=== PATIENT | female | born 1945 | race Caucasian/White ===

== ENCOUNTER 2023-11-13 15:47 | Inpatient (IN) | payer MEDICARE, SELFPAY ==
[2023-11-13 11:32] VITALS: BP 140/74
[2023-11-13] MEDS: ADENOCARD 6 MG IV (12:12)
[2023-11-13] MEDS: NSS 500 IV (12:12)
--- NOTE | 2023-11-13 12:18 | ED.GENMED ---
History of Present Illness
General
Chief Complaint: Cold/Flu/URI Symptoms
Source: patient, records and spouse
Exam Limitations: none
Time Seen by Provider: 11/13/23 11:51
Nursing documentation reviewed up to this point in time: agreed with
Travel History
Have you had any contact with someone who has COVID-19?: No
Do you have any symptoms of coronavirus? Fever > 100 degrees, chills, cough, shortness of breath, sore throat, loss of taste or smell, muscle aches, or headache?: Yes
Symptoms:: cough
History of Present Illness
History of Present Illness:
78-year-old female with a past medical history of hypertension, asthma, atrial fibrillation on Eliquis who presents to the emergency room for evaluation of cough, congestion, fevers over the past few days. Patient reports she has been sick for 6
days with hacking productive cough. She says that initially she thought her symptoms could be related to asthma exacerbation as she has had issues with this in the past typically triggered by allergies/pollen. She says that over the past few days
she started to have fever. She says that her eyes are watery and somewhat crusty. She says that she was worried she could be developing pneumonia and came to the emergency room to be assessed. In triage she was noted to be quite tachycardic to
the 150s�she denies any chest pain or palpitations. She denies any shortness of breath. She denies feeling dizzy. She has a known history of A-fib and is on Eliquis and reports compliance.
Past History
Past History
ED Past Medical History: Asthma, HTN, Other (Venous insufficiency) and Other (osteoporosis)
ED Past Surgical History: None
Social History
Tobacco: Non-smoker
Alcohol: None
Drug: None
Personal:
Living: with family
Employment: Employed ([employer])
Review of Systems
Review of Systems
All Other Systems: ROS reviewed and negative except as documented in HPI and ROS
Constitutional: Reports fever, fatigue and chills
EENT: Reports runny nose; Denies sore throat
Respiratory: Reports cough; Denies trouble breathing
Cardiac: Denies chest pain, palpitations or syncope
ABD/GI: Denies abdominal pain, nausea or vomiting
: Denies flank pain
Musculoskeletal: Denies edema, neck pain or back pain
Neurological: Denies dizzy or headache
Phy Exam
Physical Exam
Physical Exam:
General: Awake, alert, oriented x3; no acute distress
Head: Normocephalic, atraumatic
Eyes: Patient has some slight conjunctival injection; pupils are equal round and reactive to light bilaterally
Throat: Airway intact, handling secretions
Neck: Trachea midline, no JVD
Lungs: Scattered wheezing with frequent hacking cough; pulse ox acceptable on room air, respiratory rate normal, work of breathing normal, speaking full sentences
Heart: Tachycardia with ostensibly regular rhythm, no murmurs, gallops, or rubs
Abd: Soft, non distended, nontender
Neuro: Cranial nerves grossly intact, speech fluid
Skin: no rash
Extremities: Patient has trace edema in the left lower extremity which is asymmetric compared to the right�she says it is a chronic issue related to lymphedema and is not an acute change; she has warm well-perfused extremities with good distal pulses
Scores
Heart Failure Risk
Heart Failure Risk Score: Not Applicable
Heart Score for Chest Pain Patients
STEMI patient?: Not applicable
Withdrawal Assessment of Alcohol
Withdrawal Assessment Completed?: Not applicable
Course
Orders/Labs/Results
Orders:
Orders
11/13/23
Electrocardiogram (*1) Stat
Reason for Study: Chest Pain
Comment: NO ORDER RECIEVED
Electrocardiogram (*1) Urgent
Reason for Study: Chest Pain
Comment: NO ORDER RECIEVED
11/13/23 11:43
EKG [Electrocardiogram (*1)] Urgent
Reason for Study: Tachycardia
EKG- Treatment ONCE
11/13/23 12:00
0.9% Sodium Chloride 500 ml [Nss] 500 ml IV BOLUS
CR Chest Portable - 1 View Urgent
Comment:
Reason For Exam: cough, sob
Reason Study Needs to be Portable: Unable to Transport
11/13/23 12:07
Adenosine [Adenocard] 18 mg .ROUTE .STK-MED ONE
11/13/23 12:09
Adenosine [Adenocard] 18 mg .ROUTE .STK-MED ONE
11/13/23 12:11
Adenosine [Adenocard] 6 mg IV NOW STA
11/13/23 12:16
COVID-19 Antigen Urgent
Source: Nasal Swab
Complete Blood Count/With Diff Urgent
Comprehensive Metabolic Panel Urgent
TSH Urgent
Comment: ADD ON
Influenza A+B Rapid Molecular Urgent
HEATHER Source: Nasal Swab
Specimen Description:
11/13/23 12:42
Diltiazem HCl [Cardizem] 10 mg IV NOW STA
11/13/23 13:46
Add On- LAB Urgent
Tests Added?: tsh
11/13/23 14:23
Acetaminophen [Tylenol] 1,000 mg PO NOW STA
CefTRIAXone [Rocephin] 1,000 mg IV NOW STA
Doxycycline Hyclate [Vibramycin] 100 mg 0.9% Sodium Chloride 250 ml [Nss] 250 ml IV NOW
Abnormal Lab Results
11/13/23
12:16
RBC 4.18 L 10^6/uL
(4.20-5.40)
Hct 36.0 L %
(37.0-47.0)
MPV 11.5 H fL
(7.4-10.4)
Absolute Lymphs (auto) 0.9 L 10^3/uL
(1.2-3.4)
Absolute Monos (auto) 0.9 H 10^3/uL
(0.1-0.6)
Neutrophils % 77.6 H %
(42.2-75.2)
Lymphocytes % 10.8 L %
(20.5-51.1)
Monocytes % 10.8 H %
(1.7-9.3)
Sodium 134 L mmol/L
(135-145)
Glucose 184 H mg/dl
(70-99)
11/13/23 12:16
11/13/23 12:16
Vital Signs
Temp: 37.8 C
Initial and Last Documented VS:
Initial Vital Signs
Temp Pulse Resp BP Pulse Ox
37.2 C 168 20 140/74 96
11/13/23 11:32 11/13/23 11:32 11/13/23 11:32 11/13/23 11:32 11/13/23 11:32
Last Documented Vital Signs
Temp Pulse Resp BP Pulse Ox
37.2 C 83 21 117/66 95
11/13/23 11:32 11/13/23 13:00 11/13/23 13:00 11/13/23 13:00 11/13/23 13:00
MDM/Problems Addressed
Differential Diagnosis Includes:
Bronchitis, asthma exacerbation, pneumonia, viral URI, CHF
MDM/Problems Addressed:
78-year-old female with history as above presents for evaluation of cough, congestion, watery eyes and fevers over the past 6 days. She has been using her albuterol at home quite frequently. She arrives to us quite tachycardic with heart rate in
the 150s but she is not symptomatic from this. She has a known history of A-fib and is compliant with her Eliquis. Vital signs as documented. Exam as above. Patient was brought back to her room and IV was placed labs sent off including a CBC and
a CMP, thyroid studies. Will swab for COVID and flu. She was placed on continuous cardiac monitoring and given a dose of adenosine with concern for possible SVT based on her elevated heart rate�with slowing of the rhythm appears more consistent
with atrial flutter with 2:1 conduction. Plan IV fluids. Check a chest x-ray rule out pneumonia. With minimal wheezing and marked tachycardia hold on albuterol for now. Will start with some diltiazem for rate control. Patient could potentially
be candidate for ED cardioversion; will discuss with cardiology pending initial assessment.
Fortunately the patient converted to a normal sinus rhythm without intervention here. Repeat EKG confirms sinus rhythm with heart rate in the 90s. Continue to monitor pending workup.
Labs reviewed: CBC unremarkable, CMP no clinically significant abnormalities. Chest x-ray shows left lower lobe pneumonia. Clinical reassessment patient with increasing temperature to 100.1 �F. Pulse ox low normal 91% on room air. Will plan to
admit for inpatient treatment of her pneumonia, monitor on telemetry regarding her episode of rapid a flutter. Discussed with hospitalist for admission.
Chronic conditions affecting care:
Atrial fibrillation, asthma
Acute Exacerbation and/or Progression of Chronic Illness:
Acute exacerbation of atrial fibrillation
*Radiology
Radiology exam reviewed: preliminary read by ED provider and radiology read reviewed
*Pulse Oximetry
Patient hypoxic: no
*EKG
Interpreted by ED Provider?: Yes
Heart Rate: 146
Rate: tachycardiac
Rhythm: atrial flutter
Saxon: normal axis
Interval: normal interval
QRS Pattern: normal QRS
Ischemia: no ischemia
*Critical Care Note
Total Time (30-74mins, 75-104mins- exclusive of procedures): 37
comment:
Critical care statement: A total of 37 minutes of critical care time was provided for this patient. This includes management of unstable vital signs, evaluation of the patient at bedside, frequent reassessment, discussion with
consultants/hospitalist, and review of pertinent medical records. This time was separate from time utilized to perform any aforementioned documented procedures
Data Reviewed
Review of Other/Old Records Reveals: Labs and Records
Source: patient, records and spouse
Patient Management
Discussion with other providers: Hospitalist (Discussed with hospitalist)
Escalation/DeEscalation of care consider admission/obs:
Admission indicated
ED Attending Note
-
Portions of this chart may have been created with voice recognition software.� Occasional wrong word or��sound alike� substitutions may have occurred due to the inherent limitations of voice recognition software.
Discharge Plan
Departure
Patient Disposition: Admit
Date of Disposition: 11/13/23
Time of Disposition: 14:22
Admit to doctor: Mary
Presentation/result/management discussed w/ accepting MD/DO: Hospitalist
Discharge Problem:
Pneumonia, Paroxysmal atrial flutter
Prescriptions:
No Action
trazodone 50 MG tablet
50 mg PO HS
Amlodipine-Valsartan 5-160 mg
1 tab PO DAILY
metoprolol succinate 50 MG tablet extended release 24 hr
50 mg PO DAILY
albuterol sulfate 1 PUFF HFA aerosol inhaler
2 puff inhalation PRN PRN (Reason: asthma)
fluticasone propionate [Flovent HFA] 1 PUFF HFA aerosol inhaler
2 puff inhalation PRN PRN (Reason: asthma)
cholecalciferol (vitamin D3) [Vitamin D3] 1,000 UNIT capsule
1,000 unit PO DAILY
calcium citrate-vitamin D3 1 EACH tablet
1 tab PO BID
apixaban [Eliquis] 5 MG tablet
5 mg PO BID
Benefiber
2 tsp PO DAILY
Estradiol Vaginal
topical WEEKLY
Referrals:
Gm Cam MD [Family Provider] -
Interventions
Interventions:
*Risk Screen - Suicide Last Done: 11/13/23 12:42
*General Assessment Last Done: 11/13/23 12:41
*ED COVID-19 Vaccine History Last Done: 11/13/23 12:41
Discharge Date and Time
Print Language: [place]
[2023-11-13 12:21] VITALS: BMI 20.4
[2023-11-13 12:33] LABS: % Basophils 0.4 % (0-2); % Eosinophils 0.3 % (0-6); % Immature Granulocytes 0.1 % (0-0.5); % Lymphocytes 10.8 % (20.5-51.1); % Monocytes 10.8 % (1.7-9.3); % Neutrophils 77.6 % (42.2-75.2); Absolute Lymphocytes 0.9 10^3/uL (1.2-3.4); Absolute Monocytes 0.9 10^3/uL (0.1-0.6); Absolute Neutrophils 6.1 10^3/uL (1.4-6.5); Hemoglobin 12.5 g/dL (12.0-16.0); Mean Corp Hgb Conc. 34.7 g/dL (33.0-37.0); Mean Corpuscular Hgb 29.9 pg (27.0-31.0); Mean Corpuscular Volume 86.1 fL (81.0-99.0); Mean Platelet Volume 11.5 fL (7.4-10.4); Nucleated Red Blood Cells % 0 %; Platelet Count 173 10^3/uL (130-400); Red Blood Cell Count 4.18 10^6/uL (4.20-5.40); Red Cell Dist. Width 12.7 % (11.5-14.5); White Blood Cell Count 7.9 10^3/uL (4.8-10.8)
[2023-11-13 12:51] LABS: ALT (SGPT) 21 U/L (0-35); AST (SGOT) 31 U/L (14-36); Albumin 3.5 g/dl (3.5-5.0); Alkaline Phosphatase 52 U/L (38-126); Blood Urea Nitrogen 13 mg/dl (7-17); Calcium 8.7 mg/dl (8.4-10.2); Carbon Dioxide 27 mmol/L (22-30); Chloride 105 mmol/L (98-107); Estimated Creatinine Clearance 57 ml/min; Glucose 184 mg/dl (70-99); Potassium 4.1 mmol/L (3.5-5.1); Sodium 134 mmol/L (135-145); Total Bilirubin 0.8 mg/dl (0.2-1.3); Total Protein 6.4 g/dl (6.3-8.2); eGFR > 60.00
[2023-11-13 13:00] VITALS: BP 117/66
[2023-11-13 13:20] LABS: COVID-19 Antigen Negative (Negative)
[2023-11-13 14:00] VITALS: BP 127/72
[2023-11-13] MEDS: TYLENOL 1000 MG PO (14:38)
[2023-11-13] MEDS: ROCEPHIN 1000 MG IV (14:38)
[2023-11-13 15:02] LABS: TSH 0.42 uIU/ml (0.47-4.68)
--- NOTE | 2023-11-13 15:16 | HPS.HSE ---
Family Physician
-
Family Physician: Gm Cam
Chief Complaint
-
Cough, fever, shortness of breath
History of Present Illness
Patient started to feel bad days since and Tuesday this week. It got progressively worse.
The cough is got progressively worse. Initially no fever but the last 2 days she has been having fever and chills at home. Not phlegm. heard gurgling cough. Then she started to become short of breath.
She had some chest pain especially with coughing. The chest pains were in the central lower ,on and off. Currently none. She did not feel any palpitations. No nausea or vomiting. She was having metallic taste in the mouth.
She has a prior history of seasonal allergies but was not bothered much in the recent years. She also has a history of asthma, again not bothered much recently. This week she was having runny nose, sneezing and eye crusting. She saw PCP who
prescribed antihistamine nasal spray and cough medicine. No antibiotics.
Here in the ER she was noted to be in rapid a flutter ,had adenosine and Cardizem and now converted to sinus rhythm. She is on anticoagulation.
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 She was visiting her twice a week. Otherwise no sick contacts. No pets at home. Last travel was October to [place]. No prior history of pneumonias
Medical History
Past Medical History
Past Medical History: Reports Arrhythmia (afib), Asthma and HTN
Past Surgical History: Reports None
Social History
Tobacco: Non-smoker
Alcohol: None
Drug: None
Personal:
Living: With Family
Family History
Family History: Not pertinent
Allergies / Home Medications
Allergies reflects when Allergies were last updated in [email or web address].
Home Medications with original date entered in [email or web address]
Allergy/Medication List:
Allergies
Allergy/AdvReac Type Severity Reaction Status Date / Time
Sulfa (Sulfonamide Allergy Unknown Verified 11/13/23 11:35
Antibiotics)
Home Medications
trazodone 50 mg tablet 50 mg PO HS 02/14/11
albuterol sulfate 90 mcg/actuation aerosol inhaler 2 puff inhalation R Q6HPRN PRN sob/wheezing 06/27/19
amlodipine 5 mg-valsartan 160 mg tablet 1 tab PO DAILY 06/27/19
apixaban 5 mg tablet (Eliquis) 5 mg PO BID 06/27/19
metoprolol succinate 50 mg tablet,extended release 24 hr 50 mg PO DAILY 06/27/19
azelastine 137 mcg (0.1 %) nasal spray aerosol 1 spray intranasal BID 11/13/23
benzonatate 100 mg capsule 100 mg PO TID PRN cough 11/13/23
denosumab 60 mg/mL subcutaneous syringe (Prolia) 60 mg SC [id number] 11/13/23
fluticasone propionate 110 mcg/actuation HFA aerosol inhaler 2 puff inhalation R BID 11/13/23
oxybutynin chloride 5 mg tablet,extended release 24 hr 5 mg PO QPM 11/13/23
Review of Systems
-
A 12 point ROS was completed and negative except as noted: Yes
Physical Exam
Vital Signs
Vital Signs
Temp Pulse Resp BP Pulse Ox
100.1 F 83 21 117/66 95
11/13/23 14:27 11/13/23 13:00 11/13/23 13:00 11/13/23 13:00 11/13/23 13:00
Physical Exam
General: No Apparent Distress
HEENT: Moist mucous membranes
Respiratory: Crackles (left base) and Non Labored Respirations; No Wheezes or Accessory Resp Muscle Use
Cardiac: S1/S2 and Regular Rhythm (sr on monitor now)
GI: Soft
Musculoskeletal: Edema, Left Lower Extremity (chronic swelling from venous insufficiency and no large today)
Neuro: AO x 3 and No Motor Deficits; No Slurred Speech or Facial Droop
Psych: Calm; No Confused
Laboratory Results
-
11/13/23 12:16
11/13/23 12:16
Laboratory Results
Total Bilirubin 0.8 mg/dl (0.2-1.3) 11/13/23 12:16
AST 31 U/L (14-36) 11/13/23 12:16
ALT 21 U/L (0-35) 11/13/23 12:16
Alkaline Phosphatase 52 U/L (38-126) 11/13/23 12:16
Data Reviewed
-
Diagnostic Radiology: Report Reviewed by me (xr chest)
Lab Data: Labs Reviewed by me
Impression/Plan
-
Left lower lobe pneumonia-suspected infection. Rule out bacterial. COVID-19 and influenza negative. Panculture including sputum, blood cultures, and Streptococcus and urine antigen. Check procalcitonin. Started empirical antibiotics for
community-acquired pneumonia.
Hypoxic respiratory insufficiency-start on oxygen. No acute respiratory distress or suggestions of respiratory failure currently.
Seasonal allergies-acting up this week-continue with her antihistamine nasal spray.
Asthma-currently no active bronchospasm. Use as needed nebulizers. Hold on steroids.
Hypertension-continue the home medication
Atrial fibrillation-? Paroxysmal. Reverted back to sinus rhythm in the ER. Continue to follow on telemetry. Continue with anticoagulation.
Full code
[2023-11-13] MEDS: VIBRAMYCIN 260 MG IV (15:17)
[2023-11-13 17:45] VITALS: BP 109/61; BMI 20.9
[2023-11-13 19:32] VITALS: BP 104/53
[2023-11-13] MEDS: MUCINEX 600 MG PO (19:57)
[2023-11-13] MEDS: DITROPAN 2.5 MG PO (19:58)
[2023-11-13] MEDS: ELIQUIS 5 MG PO (19:58)
[2023-11-13] MEDS: DESYREL 50 MG PO (21:57)
[2023-11-13 23:17] VITALS: BP 105/57
[2023-11-14] VITALS (7 sets, daily range): BP systolic 94–120; BP diastolic 55–63; PULSE 68; O2SAT 95; BMI 20.7
[2023-11-14] MEDS: TYLENOL 650 MG PO (04:02)
[2023-11-14] MEDS: TESSALON PERLES 100 MG PO ×2 (04:03→20:38)
[2023-11-14] MEDS: ELIQUIS 5 MG PO ×2 (08:32→20:21)
[2023-11-14] MEDS: TOPROL XL 50 MG PO (08:33)
[2023-11-14] MEDS: DITROPAN 2.5 MG PO ×2 (08:33→20:22)
[2023-11-14] MEDS: DIOVAN 160 MG PO (08:33)
[2023-11-14] MEDS: VIBRAMYCIN 100 MG PO ×2 (08:35→20:22)
[2023-11-14] MEDS: NORVASC 5 MG PO (08:35)
[2023-11-14] MEDS: MUCINEX 600 MG PO ×2 (08:35→20:22)
--- NOTE | 2023-11-14 09:17 | W.PN.HOSP.TC ---
Addendum entered and electronically signed by Jackie Holman MD 11/14/23 15:08:
pt seen and examined independently--agree with plan set forth by Dr. Arreola
GENERAL: well developed, well nourished, female in no apparent distress
HEENT: NC/AT--no O2 requirements
HEART: regular rate and rhythm, +S1, +S2
LUNGS : rhonchi RUL
ABDOM: soft, nontender, nondistended, + bowel sounds
EXT: no cyanosis, clubbing, or edema
NEUROLOGIC: grossly intact
Left lower lobe pneumonia--Suspected viral pneumonia but cannot r/o CAP--cont rocephin/doxy--cultures pending--No fever in the past 24 hours--Possible discharge tomorrow
Acute Hypoxic respiratory insufficiency--Weaned off oxygen, patient on room air
Paroxysmal atrial fibrillation--Converted to sinus rhythm in the ED--Continue Eliquis--EKG showed SVT--now resolved
Seasonal allergies--Continue azelastine
code status--full code
DVT prophylaxis
Anticipated Discharge: 24 - 48 hours
Original Note:
Today's Communication/Plan
-
Possible discharge tomorrow
Assessment / Plan
Assessment / Plan
Impression
Left lower lobe pneumonia
Hypoxic respiratory insufficiency
Paroxysmal atrial fibrillation
Seasonal allergies
Assessment and plan
Left lower lobe pneumonia
Suspected viral pneumonia
Day 2 IV ceftriaxone p.o. doxycycline for CAP
Pancultures pending
No fever in the past 24 hours
Monitor WBC and temperature curve
Possible discharge tomorrow
Hypoxic respiratory insufficiency
Weaned off oxygen, patient on room air
Not in respiratory distress
Paroxysmal atrial fibrillation
On telemetry
Converted to sinus rhythm in the ED
No recent events
Continue Eliquis
EKG showed SVT
Seasonal allergies
Continue azelastine
DVT prophylaxis
Anticipated Discharge: 24 - 48 hours
Subjective/Interval History
-
Date of Service: November 14, 2023
Patient complains of bilateral lower eyelid crusting, mild shortness of breath on exertion. She denies chest pain orthopnea edema.
Objective Data
-
Vital Signs:
Vital Signs
Temp Pulse Resp BP Pulse Ox
98.4 F 83 18 111/59 92
11/14/23 08:21 11/14/23 08:35 11/14/23 08:21 11/14/23 08:35 11/14/23 08:30
I&O
11/13/23 11/14/23 11/15/23
06:59 06:59 06:59
Output Total 50 / 50
Balance -50 / -50
Review of Systems
-
History Source: Patient
All other systems: Reviewed and negative (Except mentioned)
EENT: Reports Runny Nose and Other (Lower eyelid crusts)
Respiratory: Reports Other (Dyspnea on exertion)
Physical Exam
-
General: Comfortable and Conversant
HEENT: Normocephalic and Atraumatic
Respiratory: Rhonchi (Bilateral upper lobe)
Cardiac: Regular Rhythm and S1/S2
GI: Soft, Nontender and Nondistended
Musculoskeletal: No Edema
Data Reviewed
-
Medical Tests (Nuc Med, Echo etc): Report Reviewed by me and Discussed with Physician
--- NOTE | 2023-11-14 10:23 | CM ---
Holley was admitted to with shortness of breath and afib. She lives at home with her in a 2 story condo. They share in the housekeeping and meal prep. 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 She has 2
daughters who are supportive.
Holley anticipates returning home at discharge; no DME in the home. Spouse will assist as needed. No needs anticipated at this time.
PCP is Dr. Marcial [phone]
Pharmacy is [facility] on [facility] in [place] .
--- NOTE | 2023-11-14 11:44 | PTOTSP ---
Pt is able to get OOB and ambulate in hallway and on stairs independently without need for any assistive device. PT will sign off.
[2023-11-14] MEDS: FLUSH (NSS) 1 FLUSH IV (14:06)
[2023-11-14] MEDS: ROCEPHIN 1000 MG IV (14:06)
[2023-11-14] MEDS: STERILE WATER FOR INJECTION 10 ML IV (14:06)
--- NOTE | 2023-11-14 16:43 | PTCARENOTE ---
Pt AAO x3, GARCIA well, ambulatory in room/to BR; jesús well, no c/o weakness/dizziness. VSS. Telemetry:NSR. On room air- pulse ox 95%, no c/o SOB. Jesús reg diet. Voiding in BR without difficulty. resting in bed at present, no c/o. Will continue to
monitor.
[2023-11-14] MEDS: DESYREL 50 MG PO (20:25)
[2023-11-15] MEDS: ProAIR HFA INHALER 2 PUFF INH (00:55)
[2023-11-15 03:16] VITALS: BP 110/69
[2023-11-15 04:37] LABS: % Basophils 0.7 % (0-2); % Immature Granulocytes 0.4 % (0-0.5); % Lymphocytes 21.3 % (20.5-51.1); % Monocytes 10.3 % (1.7-9.3); % Neutrophils 64.3 % (42.2-75.2); Absolute Basophils 0.1 10^3/uL (0-0.2); Absolute Eosinophils 0.2 10^3/uL (0-0.7); Absolute Lymphocytes 1.6 10^3/uL (1.2-3.4); Absolute Monocytes 0.8 10^3/uL (0.1-0.6); Absolute Neutrophils 4.9 10^3/uL (1.4-6.5); Hematocrit 31.4 % (37.0-47.0); Hemoglobin 10.6 g/dL (12.0-16.0); Mean Corp Hgb Conc. 33.8 g/dL (33.0-37.0); Nucleated Red Blood Cells % 0 %; Platelet Count 178 10^3/uL (130-400); Red Blood Cell Count 3.65 10^6/uL (4.20-5.40); Red Cell Dist. Width 12.7 % (11.5-14.5); White Blood Cell Count 7.6 10^3/uL (4.8-10.8)
[2023-11-15 05:10] LABS: Blood Urea Nitrogen 12 mg/dl (7-17); Calcium 8.6 mg/dl (8.4-10.2); Carbon Dioxide 24 mmol/L (22-30); Chloride 108 mmol/L (98-107); Estimated Creatinine Clearance 65 ml/min; Glucose 101 mg/dl (70-99); Potassium 3.8 mmol/L (3.5-5.1); Sodium 137 mmol/L (135-145); eGFR > 60.00
[2023-11-15 05:20] LABS: Procalcitonin 0.05 ng/ml (0.0-0.25)
[2023-11-15 08:03] VITALS: BP 114/61
--- NOTE | 2023-11-15 08:15 | W.PN.HOSP.TC ---
Addendum entered and electronically signed by Jackie Holman MD 11/15/23 13:23:
pt seen and examined independently--agree with plan set forth by Dr. Arreola
GENERAL: well developed, well nourished, female in no apparent distress
HEENT: NC/AT--no O2 requirements
HEART: regular rate and rhythm, +S1, +S2
LUNGS : CTA--raspy breath sounds--nothing significant
ABDOM: soft, nontender, nondistended, + bowel sounds
EXT: no cyanosis, clubbing, or edema
NEUROLOGIC: grossly intact
Left lower lobe pneumonia--Suspected viral pneumonia but cannot r/o CAP--cont rocephin/doxy, change to augmentin at d/c--cultures negative--No fever in the past 24 hours-- discharge
Acute Hypoxic respiratory insufficiency--Weaned off oxygen, patient on room air
Paroxysmal atrial fibrillation--Converted to sinus rhythm in the ED--Continue Eliquis--EKG showed SVT--now resolved
Seasonal allergies--Continue azelastine
code status--full code
DVT prophylaxis
Original Note:
Today's Communication/Plan
-
discharging today on augmentin
Assessment / Plan
Assessment / Plan
Impression
Left lower lobe pneumonia
Hypoxic respiratory insufficiency
Paroxysmal atrial fibrillation
Seasonal allergies
Assessment and plan
Left lower lobe pneumonia
Suspected viral pneumonia
Switch to augmentin 500 mg twice daily for 7 days
Negative for Legionella and strep pneumonia antigen
Blood cultures negative preliminary
No fever in the past 24 hours
Discharge today
Hypoxic respiratory insufficiency
Weaned off oxygen, patient on room air
Not in respiratory distress
Paroxysmal atrial fibrillation
Converted to sinus rhythm in the ED
EKG showed SVT-no resolved
No recent events
Continue Eliquis at home
Seasonal allergies
Continue azelastine
Claritin OTC
DVT prophylaxis
Anticipated Discharge: Today
Subjective/Interval History
-
Date of Service: November 15, 2023
Denies CP, SOB
Objective Data
-
Labs:
Laboratory Results
11/15/23
04:26
WBC 7.6
Hgb 10.6 L
Hct 31.4 L
Plt Count 178
Sodium 137
Potassium 3.8
Chloride 108 H
Carbon Dioxide 24
BUN 12
Creatinine 0.6
Glucose 101 H
Calcium 8.6
Vital Signs:
Vital Signs
Temp Pulse Resp BP Pulse Ox
98.3 F 81 18 114/61 97
11/15/23 08:03 11/15/23 08:03 11/15/23 08:03 11/15/23 08:03 11/15/23 08:03
I&O
11/14/23 11/15/23 11/16/23
06:59 06:59 06:59
Intake Total 1100 / 1100
Output Total 50 / 50
Balance -50 / -50 1100 / 1100
Review of Systems
-
All other systems: Reviewed and negative
Physical Exam
-
General: Comfortable and Conversant
HEENT: Normocephalic and Atraumatic
Respiratory: Clear to Auscultation
Cardiac: Regular Rhythm and S1/S2
Musculoskeletal: No Edema
Neuro: AO x 3
Data Reviewed
-
Medical Tests (Nuc Med, Echo etc): Report Reviewed by me and Discussed with Physician
[2023-11-15] MEDS: VIBRAMYCIN 100 MG PO (08:20)
[2023-11-15] MEDS: MUCINEX 600 MG PO (08:20)
[2023-11-15] MEDS: ELIQUIS 5 MG PO (08:20)
[2023-11-15] MEDS: DITROPAN 2.5 MG PO (08:20)
[2023-11-15] MEDS: DIOVAN 160 MG PO (08:22)
[2023-11-15] MEDS: NORVASC 5 MG PO (08:22)
[2023-11-15] MEDS: TOPROL XL 50 MG PO (08:23)
--- NOTE | 2023-11-15 11:07 | CM ---
Patient seen at bedside. Patient states that she anticipates discharge home today and patient to transport home. IMM completed yesterday and patient indicated that she had no needs at this time. CM will continue to follow for discharge
planning needs.
Plan; home with no needs anticipated
[2023-11-15 11:53] VITALS: BP 110/58
[2023-11-15] MEDS: ROCEPHIN 1000 MG IV (13:47)
[2023-11-15] MEDS: STERILE WATER FOR INJECTION 10 ML IV (13:47)
[2023-11-15] MEDS: FLUSH (NSS) 1 FLUSH IV (13:47)
--- NOTE | 2023-11-15 15:42 | W.DCSUMMARY ---
Addendum entered and electronically signed by Jackie Holman MD 11/15/23 16:03:
Fully read and agree with d/c summary as set forth by Dr. Arreola.
Original Note:
Discharge Summary
Discharge Data
Date of Admission: 11/13/23
Date of Discharge: 11/15/23
-
Pending Results: No
Hospital Course
78-year-old female presented to the ED for evaluation of cough, congestion, Fevers over the past few days. Patient has a history of asthma, hypertension, osteoporosis, venous insufficiency. In the ED her vital signs showed hypertension,
tachycardic, SpO2 of 96 on room air. Patient was in acute acute respiratory distress. In the ED patient heart rate was above 150 and patient had an episode of atrial flutter. EKG showed SVT. Patient was placed on continuous cardiac monitoring
and given a dose of adenosine for concerns of SVT and Cardizem drip. She was converted to sinus rhythm. Soon patient patient's temperature increased to 100.1. Chest x-ray showed lower lobe pneumonia and she was started on IV ceftriaxone. Patient
has a history of paroxysmal atrial fibrillation and uses Eliquis at home. Cultures were negative for infection. We continued IV ceftriaxone and added doxycycline 100 mg twice daily PO. Day of discharge patient was hemodynamically stable, no
evidence of increased heart rate. Patient does report of seasonal allergies for which she was taking azelastine nasal spray. Patient was discharged home on oral antibiotics-Augmentin 500 mg twice daily for 7 days. SVT and atrial flutter resolved.
Vital signs on the day of discharge
Blood pressure 110/58 pulse 75 RR 18 Temp 97.3 O2 sat 94 on room air
Left lower lobe pneumonia
Oral Augmentin primary milligram twice daily for 7 days
Hypoxic respiratory insufficiency
Weaned off oxygen, not requiring oxygen at home
Paroxysmal atrial fibrillation
Continue Eliquis
Seasonal allergies
Continue azelastine spray, OTC Claritin
Discharge Plan
-
Patient Disposition: Home (Routine Discharge)
Discharge Diagnosis/Procedures: Left lower lobe pneumonia
Hypoxic respiratory insufficiency
Paroxysmal atrial fibrillation
Seasonal allergies
Diet: Regular
Activity: No restrictions
Driving Restrictions: As prior to admission
Blood Work: CBC in 1 week
Referrals:
Gm Cam MD [Family Provider] - in less than 1 week
Additional Discharge Medication Instructions: Amoxicillin clavulanate 500-125, 1 tablet to be taken 2 times a day with food for 7 days
Prescriptions:
New
amoxicillin-pot clavulanate 500-125 mg tablet
1 tab PO BID 7 Days Qty: 14 0RF
Continued
trazodone 50 MG tablet
50 mg PO HS
metoprolol succinate 50 MG tablet extended release 24 hr
50 mg PO DAILY
albuterol sulfate 1 PUFF HFA aerosol inhaler
2 puff inhalation R Q6HPRN PRN (Reason: sob/wheezing)
amlodipine-valsartan 5-160 mg Tablet
1 tab PO DAILY
Eliquis 5 MG tablet
5 mg PO BID
benzonatate 100 mg capsule
100 mg PO TID PRN (Reason: cough)
oxybutynin chloride 5 mg tablet extended release 24hr
5 mg PO QPM
azelastine 137 mcg (0.1 %) aerosol,spray
1 spray INTRANASAL BID
fluticasone propionate 110 mcg/actuation HFA aerosol inhaler
2 puff INHALATION R BID
Prolia 60 mg/mL Syringe
60 mg SC [id number]
Discharge Orders:
Discharge Patient (As Directed); Ordered 11/15/23
Ordered By: Jeffery Arreola
Discharge Date and Time
Discharge Date/Time: 11/15/23 14:37
Print Language: GERMAN
== END 2023-11-15 14:37 | disposition home or self-care (01) | DRG 194 ==
LOC: 4 EAST ACU 15:47
PROVIDERS: Student in an Organized Health Care Education/Training Program; ADMITTING PHYSICIAN Internal Medicine; ATTENDING PHYSICIAN Internal Medicine; EMERGENCY PHYSICIAN Emergency Medicine; FAMILY PHYSICIAN Internal Medicine
DX: J18.9 Pneumonia, unspecified organism (principal); I47.10 Supraventricular tachycardia, unspecified; I48.92 Unspecified atrial flutter; Z79.01 Long term (current) use of anticoagulants; R09.02 Hypoxemia; R06.89 Other abnormalities of breathing; I48.0 Paroxysmal atrial fibrillation; Z11.52 Encounter for screening for COVID-19
CPT/HCPCS: 71045; 80048; 80053; 84145; 84443; 85025; 87040; 87449; 87502; 87811; 87899; 93005; 94640; 96361; 96374; 96375; 97161; 97530; 99291; J0153

== ENCOUNTER → 2024-01-09 10:18 | Outpatient (REF) | payer MEDICARE, SELFPAY | LOC: RAD 10:18 | PROVIDERS: ATTENDING PHYSICIAN Student in an Organized Health Care Education/Training Program | DX: Z87.01 Personal history of pneumonia (recurrent) (principal); R91.1 Solitary pulmonary nodule; Z87.09 Personal history of other diseases of the respiratory system | CPT/HCPCS: 71250 ==

== ENCOUNTER → 2024-01-24 14:28 | Outpatient (REF) | payer MEDICARE, SELFPAY | LOC: RCS 14:28 | PROVIDERS: ATTENDING PHYSICIAN Nurse Practitioner; FAMILY PHYSICIAN Student in an Organized Health Care Education/Training Program; REFERRING PHYSICIAN Internal Medicine Critical Care Medicine | DX: I48.0 Paroxysmal atrial fibrillation (principal); I10 Essential (primary) hypertension; I34.0 Nonrheumatic mitral (valve) insufficiency | CPT/HCPCS: 93306 ==

== ENCOUNTER → 2024-01-25 14:25 | Outpatient (REF) | payer MEDICARE, SELFPAY | LOC: WDC 14:25 | PROVIDERS: ATTENDING PHYSICIAN Obstetrics & Gynecology; FAMILY PHYSICIAN Student in an Organized Health Care Education/Training Program | DX: Z12.31 Encounter for screening mammogram for malignant neoplasm of breast (principal) | CPT/HCPCS: 77063; 77067 ==

== ENCOUNTER 2024-02-06 06:42 | Day surgery (SDC) | payer MEDICARE, SELFPAY ==
[2024-01-30 09:18] LABS: INR 1.02; PT 13.3 Sec (11.4-14.6)
[2024-01-30 14:15] VITALS: BMI 20.4
[2024-02-06] VITALS (8 sets, daily range): BP systolic 105–136; BP diastolic 59–75; BMI 20.2
== END 2024-02-06 17:05 | disposition home or self-care (01) ==
LOC: GI 06:42
PROVIDERS: ATTENDING PHYSICIAN Internal Medicine Critical Care Medicine; FAMILY PHYSICIAN Student in an Organized Health Care Education/Training Program
DX: R91.1 Solitary pulmonary nodule (principal); D14.32 Benign neoplasm of left bronchus and lung; J98.4 Other disorders of lung; J18.9 Pneumonia, unspecified organism
CPT/HCPCS: 31629; 31623; 31624; 31627; 31654; 88172; 88173; 88305; 71045; 76000; 85610; 85730; 87015; 87070; 87102; 87116; 87205; 88112; 88333; 88334; 94640; C1887

== ENCOUNTER → 2024-03-20 10:40 | Outpatient (REF) | payer MEDICARE, SELFPAY | LOC: RAD 10:40 | PROVIDERS: ATTENDING PHYSICIAN Internal Medicine Critical Care Medicine; FAMILY PHYSICIAN Student in an Organized Health Care Education/Training Program | DX: R91.1 Solitary pulmonary nodule (principal) | CPT/HCPCS: 71046 ==

== ENCOUNTER → 2024-04-12 09:46 | Outpatient (REF) | payer MEDICARE, SELFPAY | LOC: RAD 09:46 | PROVIDERS: ATTENDING PHYSICIAN Internal Medicine Critical Care Medicine; FAMILY PHYSICIAN Student in an Organized Health Care Education/Training Program | DX: R91.1 Solitary pulmonary nodule (principal) | CPT/HCPCS: 71250 ==

== ENCOUNTER → 2024-04-17 11:50 | Outpatient (REF) | payer MEDICARE, SELFPAY | LOC: RAD 11:50 | PROVIDERS: ATTENDING PHYSICIAN Internal Medicine Gastroenterology; FAMILY PHYSICIAN Student in an Organized Health Care Education/Training Program | DX: R19.4 Change in bowel habit (principal) | CPT/HCPCS: 74018 ==

== ENCOUNTER → 2024-06-21 06:19 | Day surgery (SDC) | payer MEDICARE, SELFPAY | LOC: GI 06:19 | PROVIDERS: ATTENDING PHYSICIAN Internal Medicine Gastroenterology | DX: Z12.11 Encounter for screening for malignant neoplasm of colon (principal); Z86.0101 Personal history of adenomatous and serrated colon polyps; K57.30 Diverticulosis of large intestine without perforation or abscess without bleeding; D12.3 Benign neoplasm of transverse colon; K62.89 Other specified diseases of anus and rectum | CPT/HCPCS: 45380; 88305 ==

== ENCOUNTER → 2024-10-11 13:03 | Outpatient (REF) | payer MEDICARE, SELFPAY | LOC: RAD 13:03 | PROVIDERS: ATTENDING PHYSICIAN Internal Medicine Critical Care Medicine; FAMILY PHYSICIAN Student in an Organized Health Care Education/Training Program | DX: R91.1 Solitary pulmonary nodule (principal) | CPT/HCPCS: 71250 ==

== ENCOUNTER → 2024-10-30 08:18 | Outpatient (REF) | payer MEDICARE, SELFPAY | LOC: RAD 08:18 | PROVIDERS: ATTENDING PHYSICIAN Student in an Organized Health Care Education/Training Program | DX: R60.0 Localized edema (principal) | CPT/HCPCS: 93971 ==

== ENCOUNTER 2025-01-15 16:25 | Inpatient (IN) | payer MEDICARE, SELFPAY ==
[2025-01-15] VITALS (7 sets, daily range): BP systolic 141–181; BP diastolic 65–84; BMI 20.7
--- NOTE | 2025-01-15 14:24 | ED.GENMED ---
History of Present Illness
General
Chief Complaint: Fall
Source: patient
Exam Limitations: none
Time Seen by Provider: 01/15/25 14:09
Nursing documentation reviewed up to this point in time: agreed with
History of Present Illness
History of Present Illness:
Patient is a 79-year-old female with past medical history of A-fib hypertension on Eliquis presents to the ER for evaluation after fall. Patient tripped over fencing while gardening and landed on both wrists. She did hit her head on the grass.
She denies loss of consciousness. She denies any headache neck pain back pain. She denies any nausea vomiting. She complains of bilateral wrist pain.
Past History
Past History
ED Past Medical History: Asthma, HTN, Other (Venous insufficiency) and Other (osteoporosis)
ED Past Surgical History: None
Social History
Tobacco: Non-smoker
Alcohol: None
Drug: None
Personal:
Living: with family
Employment: Employed ([employer])
Phy Exam
General Physical Exam
General Presentation: no apparent distress
General age: appears stated age
General Skin: warm and dry
General Habitus: normal
General Mental: alert
Eye Exam
Eye Exam: PERRL and EOMI
Eye Exam General: PERRL: bilateral and EOM intact: bilateral
Pupil Exam: Bilateral: round and reactive
Neurological Exam
Neurological Exam: alert and oriented x3
Musculoskeletal Exam
Musculoskeletal Exam: other (No head injury on exam no C-spine tenderness full range of motion to bilateral lower extremities including hips, bilateral tenderness swelling mild deformity to bilateral wrists normal cap refill normal distal sensation)
Skin Exam
Skin Exam: normal color and warm/dry
Psychiatric Exam
Psychiatric Exam: normal mood/affect
Course
Orders/Labs/Results
Orders:
Orders
01/15/25 11:26
CT Head W/o Iv Contrast Urgent
Comment:
Reason For Exam: fall
Cervical Spine wo Contrast CT [CT Cervical Spine W/o Iv Contr] Urgent
Comment:
Reason For Exam: fall
01/15/25 11:27
CR Wrist - Left Min 3 Views Urgent
Comment:
Reason For Exam: fall
Wrist, Right 3 Views [CR Wrist - Right Min 3 Views] Urgent
Comment:
Reason For Exam: fall
01/15/25 14:28
Oxycodone/Acetaminophen [Percocet 5/325] 1 tablet PO NOW STA
01/15/25 14:41
Electrocardiogram (*1) Stat
Reason for Study: Abdominal Pain
EKG- Treatment ONCE
IV Insert/Care/Rem.- Treatment PRN
Splints/Slings/Crut- Treatment ONCE
Location: Bilateral
Type of Splint: Volar
0.9% Sodium Chloride 500 ml [Nss] 500 ml IV BOLUS
Morphine Sulfate 2 mg IV NOW STA
01/15/25 14:54
Complete Blood Count/With Diff Urgent
Comprehensive Metabolic Panel Urgent
Abnormal Lab Results
01/15/25
14:54
MPV 11.0 H fL
(7.4-10.4)
Absolute Lymphs (auto) 1.0 L 10^3/uL
(1.2-3.4)
Neutrophils % 81.0 H %
(42.2-75.2)
Lymphocytes % 13.9 L %
(20.5-51.1)
Chloride 109 H mmol/L
(98-107)
Glucose 100 H mg/dl
(70-99)
01/15/25 14:54
01/15/25 14:54
Vital Signs
Initial and Last Documented VS:
Initial Vital Signs
Temp Pulse Resp BP Pulse Ox
97.9 F 57 16 150/74 99
01/15/25 11:23 01/15/25 11:23 01/15/25 11:23 01/15/25 11:23 01/15/25 11:23
Last Documented Vital Signs
Temp Pulse Resp BP Pulse Ox
97.9 F 57 16 141/65 100
01/15/25 11:23 01/15/25 11:23 01/15/25 11:23 01/15/25 14:00 01/15/25 15:39
Procedures
Splint Check
Splint checked by provider?: Yes
Circulation/Movement/Sensation post splint application: brisk cap refill and full sensation
MDM/Problems Addressed
Differential Diagnosis Includes:
Not limited to head injury cervical strain, bilateral wrist sprain versus fracture
MDM/Problems Addressed:
Patient is a 79-year-old female on Eliquis for A-fib presents after fall patient has bilateral wrist fractures. She has strong pulses normal sensation head CT and cervical spine negative. Case reviewed with orthopedics Dr. Jones who was able to
visualize images on [place] text . will admit as per ortho surgery will be beneficial with these type of fractures.
Will check basic labs and medicate for pain.
Labs reviewed with normal white count stable stable platelets normal sodium potassium normal renal function
Chronic conditions affecting care:
On EliFaction Skisis for A-fib
*Radiology
Radiology exam reviewed: radiology read reviewed
*Pulse Oximetry
SaO2: 100
Oxygen Mode of Delivery: Room air
Patient hypoxic: no
*Critical Care Note
Total Time (30-74mins, 75-104mins- exclusive of procedures): Not Applicable
Patient Management
Discussion with other providers: Auto Damage Insurance Appraiser (ortho DR Jones )
ED Attending Note
-
Portions of this chart may have been created with voice recognition software.� Occasional wrong word or��sound alike� substitutions may have occurred due to the inherent limitations of voice recognition software.
Discharge Plan
Departure
Patient Disposition: Admit
Date of Disposition: 01/15/25
Time of Disposition: 15:52
Admit to: Med/Surg
Admit to doctor: hospitalist
Presentation/result/management discussed w/ accepting MD/DO: Hospitalist
Patient with high blood pressure during this ER visit?: Yes
Condition: Fair
Covid-19: Not Applicable
Discharge Problem:
Closed fracture of both wrists
Prescriptions:
No Action
trazodone 50 MG tablet
50 mg PO HS
metoprolol succinate 50 MG tablet extended release 24 hr
50 mg PO DAILY
albuterol sulfate 1 PUFF HFA aerosol inhaler
2 puff inhalation R Q6HPRN PRN (Reason: sob/wheezing)
amlodipine-valsartan 5-160 mg Tablet
1 tab PO DAILY
Eliquis 5 MG tablet
5 mg PO BID
oxybutynin chloride 5 mg tablet extended release 24hr
5 mg PO QPM
fluticasone propionate 110 mcg/actuation HFA aerosol inhaler
2 puff INHALATION R BID
Rx Instructions:
Patient takes as needed for shortness of breath
Prolia 60 mg/mL Syringe
60 mg SC [id number]
alprazolam 0.25 mg Tablet
0.25 mg PO PRN PRN (Reason: pre-PET scan study)
Referrals:
Celine Marcial MD [Family Provider, Internal Medicine]
Interventions
Interventions:
*Risk Screen - Suicide Last Done: 01/15/25 11:23
*General Assessment Last Done: 01/15/25 13:34
*Neglect/Abuse Screening Last Done: 01/15/25 11:23
*ED- Fall Risk Assessment Last Done: 01/15/25 13:34
*ED COVID-19 Vaccine History Last Done: 01/15/25 13:34
ED-Musculoskeletal Assessment Last Done: 01/15/25 13:34
ED- Neurological Assessment Last Done: 01/15/25 13:34
Discharge Date and Time
Print Language: RUSSIAN
[2025-01-15] MEDS: MORPHINE SULFATE 2 MG IV (15:01)
[2025-01-15] MEDS: NSS 500 IV (15:03)
[2025-01-15 15:19] LABS: Hematocrit 38.0 % (37.0-47.0); Hemoglobin 12.9 g/dL (12.0-16.0); Mean Corp Hgb Conc. 33.9 g/dL (33.0-37.0); Mean Corpuscular Volume 87.4 fL (81.0-99.0); Nucleated Red Blood Cells % 0 %; Platelet Count 180 10^3/uL (130-400); Red Cell Dist. Width 12.7 % (11.5-14.5)
[2025-01-15 15:27] LABS: ALT (SGPT) 14 U/L (0-35); AST (SGOT) 21 U/L (14-36); Albumin 4.0 g/dl (3.5-5.0); Alkaline Phosphatase 43 U/L (38-126); Blood Urea Nitrogen 17 mg/dl (7-17); Calcium 9.4 mg/dl (8.4-10.2); Carbon Dioxide 26 mmol/L (22-30); Chloride 109 mmol/L (98-107); Glucose 100 mg/dl (70-99); Potassium 4.1 mmol/L (3.5-5.1); Sodium 139 mmol/L (135-145); Total Protein 6.9 g/dl (6.3-8.2); eGFR > 60.00
--- NOTE | 2025-01-15 15:54 | HPS.HSE ---
Family Physician
-
Family Physician: Celine Marcial MD
Chief Complaint
-
fall
History of Present Illness
79-year-old female with past medical history of A-fib hypertension on Eliquis presents to the ER for evaluation after fall. patient was doing gardening at [employer], she lost the balance while stepping back and fell backwards and landed on her hand
and buttocks. she hit her head on the floor. she felt dizzy at that time. denied fever, chills,chest pain, sob. denied abdominal pain,n,v,d.denied dysuria or hematuria.
x ray with wrist fractures. admitting for further managment.
Medical History
Past Medical History
Past Medical History: Reports Other
Additional Past Medical History:
Chronic cystitis
Atrophic vaginitis
UTI
PAF
Mitral regurgitation
Hypertension
Pulmonary nodules
CKD
Asthma
Persistent A-fib
Past Surgical History: Reports Other
Additional Past Surgical History:
Skin cancer excision
. Below MDL cyst excision
Social History
Tobacco: Former Smoker
Alcohol: Occasional
Drug: None
Personal:
Living: With Family
Family History
Family History: Not pertinent
Allergies / Home Medications
Allergies reflects when Allergies were last updated in [employer].
Home Medications with original date entered in [employer]
Allergy/Medication List:
Allergies
Allergy/AdvReac Type Severity Reaction Status Date / Time
Sulfa (Sulfonamide Allergy Unknown Verified 01/15/25 11:22
Antibiotics)
Home Medications
trazodone 50 mg tablet 50 mg PO HS 02/14/11
albuterol sulfate 90 mcg/actuation aerosol inhaler 2 puff inhalation R Q6HPRN PRN sob/wheezing 06/27/19
amlodipine 5 mg-valsartan 160 mg tablet 1 tab PO DAILY 06/27/19
apixaban 5 mg tablet (Eliquis) 5 mg PO BID 06/27/19
metoprolol succinate 50 mg tablet,extended release 24 hr 50 mg PO DAILY 06/27/19
denosumab 60 mg/mL subcutaneous syringe (Prolia) 60 mg SC [id number] 11/13/23
fluticasone propionate 110 mcg/actuation HFA aerosol inhaler 2 puff inhalation R BID 11/13/23
oxybutynin chloride 5 mg tablet,extended release 24 hr 5 mg PO QPM 11/13/23
alprazolam 0.25 mg tablet 0.25 mg PO PRN PRN pre-PET scan study 02/02/24
Review of Systems
-
Constitutional: Reports No Symptoms
EENT: Reports No Symptoms
Respiratory: Reports No Symptoms
Cardiac: Reports No Symptoms
Abdomen/GI: Reports No Symptoms
: Reports No Symptoms
Musculoskeletal: Reports Other (b/l wrist pain)
Skin: Reports No Symptoms
Neurological: Reports No Symptoms
Endocrine: Reports No Symptoms
Hematologic/Lymphatic: Reports No Symptoms
Psych: Reports No Symptoms
Physical Exam
Vital Signs
Vital Signs
Temp Pulse Resp BP Pulse Ox
97.9 F 57 16 141/65 100
01/15/25 11:23 01/15/25 11:23 01/15/25 11:23 01/15/25 14:00 01/15/25 15:39
Physical Exam
General: Well Developed, Well Nourished and No Apparent Distress
HEENT: NormoCephalic, Moist mucous membranes and Atraumatic
Respiratory: Clear
Cardiac: S1/S2 and Regular Rhythm; No Murmur or Rub
GI: Soft, Non Tender, Non Distended and Normal Bowel Sounds; No Organomegaly
Rectal: Deferred by Provider
Musculoskeletal: No Clubbing, No Cyanosis and Other (b/l wrist splints)
Skin: No Rash
Neuro: AO x 3 and Nonfocal/grossly intact
Psych: Calm
Laboratory Results
-
01/15/25 14:54
01/15/25 14:54
Laboratory Results
Total Bilirubin 0.5 mg/dl (0.2-1.3) 01/15/25 14:54
AST 21 U/L (14-36) 01/15/25 14:54
ALT 14 U/L (0-35) 01/15/25 14:54
Alkaline Phosphatase 43 U/L (38-126) 01/15/25 14:54
Data Reviewed
-
Diagnostic Radiology: Report Reviewed by me
Lab Data: Labs Reviewed by me
Impression/Plan
-
#
Mechanical fall with bilateral wrist fracture
- Splinted in ER
- Will keep patient n.p.o. after midnight for possible surgical intervention in the morning
- IV Oxy, Dilaudid continued
- Orthopedics consulted
-wrist X ray with Comminuted impacted intra-articular fracture of the distal right radius.Ulnar styloid process fracture.
-head CT with No acute intracranial abnormality.
-cervical spine CT with No evidence of acute fracture or dislocation.
-PT/OT consulted
#Paroxysmal atrial fibrillation
-EKG with NSR
-hold eliquis
-metoprolol continued with hold parameter
#essential HTN
-valsartan continued with hold parameter
#DVT prophylaxis
-scd
#CODE status
-full code
--- NOTE | 2025-01-15 16:07 | W.PN.UPDATE ---
Update Note
Progress Note Update
This note serves as an addendum to the H&P by clinical technician JOHN
Syl CARLOS
HPI
79 F HX HTN, Venous insufficiency, Osteoporosis , Prx AF, chr Eliquis seen at ER
- for evaluation after fall.
- tripped over fencing while gardening and landed on both wrists.
- hit her head on the grass - denies loss of consciousness.
- denies any headache neck pain back pain.
- denies any nausea vomiting.
- complains of bilateral wrist pain.
Vital Signs
Temp Pulse Resp BP Pulse Ox
97.9 F 57 16 141/65 100
01/15/25 11:23 01/15/25 11:23 01/15/25 11:23 01/15/25 14:00 01/15/25 15:39
PE
Gen: non toxic
HEENT: atraumatic head
Neck: supple
Lungs: CTA
Cor: RR No M
Abdomen: benign
SHOE ASSOCIATE: grossly normal
MS: wearing b/l wrist splint
Relevant data
Abnormal Labs
01/15/25
14:54
MPV 11.0 H
Absolute Lymphs (auto) 1.0 L
Neutrophils % 81.0 H
Lymphocytes % 13.9 L
Chloride 109 H
Glucose 100 H
ASSESSMENT & PLAN
Pending Rx reconciliation
Acute B/L wrist Fxs
S/P mechanical Fall and landed on both wrist
On Eliquis
No head strike
NEG HCT , NEG Spine CT
- Ortho consulted
- Fx set protocl
- wrist splnit
- Ortho DR Jones consulted - surgery may be beneficial.. NPO after midnight and is more comfortable.
Currently in NSR
Prx AF on Eliquis - today 01/15/25 @ 8-9 am
- Hold Eliquis & - last dose was
- cont. Metoprolol XL
Bn HTN
- c/w Aerodine - Valsartan
DVT Px: SCD
Full code
IP/Obs
--- NOTE | 2025-01-15 18:00 | PTCARENOTE ---
Pt received from the ED via stretcher. Transport was w/o incident. Pt is AAOx3, HRR, lungs are clear, strong breath sounds anteriorly, and decreased lung sounds b/l bases. Pt wrapped w/сергей wraps b/l wrists up to elbows right and left sides. Swelling
noted to be starting in fingers of both hands, w/ fingers cool to touch. Pt's b/l right and left brachial pulses WNL. VSS, Pt is afebrile. Pt and Pt's instructed on plan of care. Both Pt and verbalized understanding of instructions.
Call cm and at bedside.
[2025-01-15] MEDS: DITROPAN 2.5 MG PO (19:41)
[2025-01-15] MEDS: COLACE 100 MG PO (19:43)
[2025-01-15] MEDS: TYLENOL 650 MG PO ×2 (19:43→23:25)
[2025-01-15] MEDS: SENOKOT 17.2 MG PO (19:43)
[2025-01-15] MEDS: DILAUDID 0.5 MG IV (19:50)
[2025-01-15] MEDS: LOPRESSOR 2.5 MG IV (20:55)
[2025-01-16] VITALS (13 sets, daily range): BP systolic 140–187; BP diastolic 69–96
[2025-01-16] MEDS: TYLENOL 650 MG PO ×5 (03:20→20:16)
--- NOTE | 2025-01-16 07:05 | CON.ORTHO ---
Consultation
-
Date/Time Consultation Requested: 01/15/2025
Date/Time Consultation Performed: 01/16/2025
Requesting Provider: YOEL Miles
Performing Provider: Zahra Lopez PA-C, for Dr. Issac Jones
Reason for Consultation: Bilateral distal radius fractures
Consultation - Orthopedics
History
HPI: This is a 79 year old female who sustained a fall while gardening yesterday. She reports she was working in her [employer] and was attempting to back out. She went to step over the fence, but fell in the process,
falling backwards. She caught herself with outstretched arms. She experienced immediate pain that prompted her to present to [facility] ED. X-rays were taken and demonstrated bilateral comminuted, impacted distal radius fractures with
dorsal displacement. Our Orthopedic specialty was consulted to discuss definitive management of her fractures. She is currently on Eliquis for A-fib, the last dose of which was in the am of 01/15/25. She is retired and left hand dominant.
Past medical history: A-fib, HTN, asthma, venous insufficiency, osteoporosis (on prolia).
Past surgical history: Dermatologic procedures.
Social history: Denies current tobacco use, denies alcohol consumption. Lives at home with .
Family history: Non contributory.
Review of systems: Negative except for those mentioned in HPI.
Allergies / Home Medications
Allergy/AdvReac Type Severity Reaction Status Date / Time
Sulfa (Sulfonamide Allergy Unknown Verified 01/15/25 11:22
Antibiotics)
�Medication �Instructions �Recorded
apixaban 5 mg tablet (Eliquis) 5 mg PO BID Blood Clot 06/27/19
Prevention/Tx
metoprolol succinate 50 mg 50 mg PO DAILY Blood Pressure 06/27/19
tablet,extended release 24 hr
denosumab 60 mg/mL subcutaneous 60 mg SC [id number] Osteoporosis 11/13/23
syringe (Prolia)
oxybutynin chloride 5 mg 5 mg PO HS Urinary Issue 11/13/23
tablet,extended release 24 hr
cholecalciferol (vitamin D3) 25 25 mcg PO DAILY Supplement 01/15/25
mcg (1,000 unit) tablet
estradiol 0.01% (0.1 mg/gram) 1 appful vaginal SUTH Hormonal 01/15/25
vaginal cream Agent
polyethylene glycol 3350 17 gram 17 g PO DAILY Constipation 01/15/25
oral powder packet (Miralax)
valsartan 160 mg tablet 160 mg PO DAILY Blood Pressure 01/15/25
Vital Signs / Lab Results
Temp Pulse Resp BP Pulse Ox
97.9 F 86 16 146/74 95
01/16/25 03:20 01/16/25 03:20 01/16/25 03:20 01/16/25 03:20 01/16/25 03:20
01/15/25 14:54
01/15/25 14:54
Physical Examination:
General: WD/WN in NAD at rest. AAO x 4.
HEENT: AT/NC, neck supple.
Lungs: non labored breathing on room air, no audible wheezing.
Bilateral wrists: Splints in place. Able to wiggle fingers without difficulty, no obvious swelling. N/v intact distally.
Radiographic studies:
3 view x-rays of the bilateral wrists demonstrate comminuted, impacted distal radius fractures with dorsal angular displacement.
Assessment / Plan
Assessment: Bilateral displaced distal radius fractures.
Plan: Unfortunately Mrs. Morelos sustained bilateral distal radius fractures during her fall yesterday. Based on the level of displacement and bilateral nature of fractures, it is recommended that she proceed with surgical intervention in the form of
bilateral distal radius ORIFs. The procedure was discussed in detail and associated risks, benefits, and recovery process explained in detail. The plan will be to proceed to the OR under the direction of Dr. Jones later today. Surgical consent
was signed and placed in patient's chart. IV abx conveyor weigher operator to OR and bilateral wrists marked as correct surgical sites. She will remain NPO. NWB on bilateral upper extremities until further notice. Patient was in agreement with treatment
recommendations and all questions were answered.
[2025-01-16] MEDS: SENOKOT 17.2 MG PO ×2 (08:30→20:16)
[2025-01-16] MEDS: DIOVAN 160 MG PO (08:30)
[2025-01-16] MEDS: DITROPAN 2.5 MG PO ×2 (08:30→20:16)
[2025-01-16] MEDS: TOPROL XL PO (08:31)
[2025-01-16] MEDS: COLACE 100 MG PO ×2 (08:31→20:16)
[2025-01-16] MEDS: MIRALAX PO (08:31)
--- NOTE | 2025-01-16 09:57 | CM ---
Reviewed the chart notes and spoke with the patient at the bedside. The patient anticipates going to OR today for fx repair to bilat wrists. The patient resides with her spouse in a two story home with no steps to enter. The patient reports no
DME/VN/SNF in the past. The patient confirmed her pharmacy of choice is [facility]. CM continues to be available to patient/family and is monitoring medical plan for needs at discharge.
Plan: Discharge plans will depend on the patient's progress.
--- NOTE | 2025-01-16 11:02 | PTCARENOTE ---
Pt remains hypertensive upon recheck after am med administration. Dr Mccoy made aware. Care ongoing.
--- NOTE | 2025-01-16 17:01 | W.PN.HOSP.TC ---
Addendum entered and electronically signed by Guillermo Mccoy MD 01/16/25 22:49:
Attending Addendum-
I saw and evaluated the patient. I reviewed the resident�s note and agree with findings and plan as documented in the resident�s note. Sub: complains of pain in b/l wrists on movement and gripping. seen with present. Denies fevers chills.
Full 12 point ROS reviewed and negative except as documented Exam: Vitals reviewed in chart GEN-NAd heart RRR no MRG lungs clear abd soft LE no edema Ext- b/l wrist splinted sensation intact fingertips warm delayes cap refil
Plan:
Mechanical fall with bilateral comminuted distal rad fx with dorsal displacement with Ulnar styloid process fracture.
- Splinted in ER
- cont n.p.o. for b/l ORIF today bu ortho
- IV Oxy, Dilaudid continued
- cervical spine CT with No evidence of acute fracture or dislocation.
- PT/OT consulted
- hold eliquis to start in AM after OR
#Paroxysmal atrial fibrillation
-EKG with NSR
-hold eliquis for OR
-metoprolol continued with hold parameter
#Essential HTN
-valsartan continued with hold parameter
#DVT prophylaxis
-scd (eliquis on hold)
#CODE status
-full code
ACP
Patient consented to discuss, was with , time spent explanation of advance directives, changes in health status, patient�s health care wishes if the patient becomes unable to make health decisions, goals of care, code status, and prognosis 'I
have living will if Im in a vegetative state you can remove life support' - 16 minutes
Time spent coordinating care, review of plan of care with resident, personally reviewed previous records in EMR, med rec, labs, radiology, d/w nursing, family total time documented is exclusive of any additional time listed that was spent in advance
care planning discussion -� 51 minutes
Original Note:
Today's Communication/Plan
-
Surgery with ORIFs scheduled for later today.
Monitor clinical status.
Assessment / Plan
Assessment / Plan
#Bilateral distal radius fractures
- Per orthopedics surgery later today for bilateral ORIFs
- Nonweightbearing
- N.p.o., holding anticoagulation for A-fib and DVT prophylaxis in preparation for surgery
- Pain control: Tylenol and Dilaudid as needed
- PT/OT evaluation following surgery
#Atrial fibrillation
-C/W metoprolol
- Holding apixaban in preparation for surgery
#Hypertension
- Patient's BP into the 180s/90s overnight and this morning
- C/W metoprolol, valsartan
- Monitor response to home medications
#Suprapubic discomfort
- Patient states she urinated overnight 2 times
-Monitor ability to urinate following surgery
#Osteoporosis
- Holding home denosumab
DVT PPx: SCDs
Anticipated Discharge: Within 24 hours
Subjective/Interval History
-
Date of Service: January 16, 2025
Patient seen at bedside Hospital day #2 patient states she is uncomfortable due to her arm injuries, but she is not in any pain at the moment. Nursing reports patient was hypertensive overnight and into this morning. Patient reports mild
suprapubic discomfort, but she also indicates she urinated a couple times overnight.
Objective Data
-
Vital Signs:
Vital Signs
Temp Pulse Resp BP Pulse Ox
98.5 F 60 16 160/78 95
01/16/25 16:21 01/16/25 16:21 01/16/25 16:21 01/16/25 16:21 01/16/25 16:21
I&O
01/15/25 01/16/25 01/17/25
06:59 06:59 06:59
Intake Total 240 / 240
Output Total 700 / 700
Balance -460 / -460
Review of Systems
-
History Source: Patient
Constitutional: Denies Fever, Fatigue or Chills
EENT: Reports No Symptoms Reported
Respiratory: Denies Cough or Trouble Breathing
Cardiac: Denies Chest Pain or Palpitations
Abdomen/GI: Denies Abdominal Pain
Genitourinary: Reports Other (Reports mild suprapubic pain)
Musculoskeletal: Reports Other (Wrist discomfort at rest; wrist pain with movement)
Skin: Reports No Symptoms
Neuro: Denies Headache, Weakness or Numbness
Physical Exam
-
General: Well Developed, Well Nourished, No Apparent Distress and Conversant
HEENT: Normocephalic and Atraumatic
Respiratory: Clear to Auscultation; Negative Wheezes or Crackles
Cardiac: Regular Rhythm, S1/S2 and Other (Fingers warm and without cyanosis in bilateral upper extremities); Negative Murmur, Rub or Gallop
GI: Soft, Nontender and Normal Bowel Sounds
Musculoskeletal: Other (Bilateral extremities wrapped following injury sustained yesterday; bilateral upper extremities neurovascularly intact)
Skin: Warm and Dry
Neuro: AO x 3
Psych: Calm
--- NOTE | 2025-01-16 20:05 | PTCARENOTE ---
Pt received from the PACU at 2004. Pt is AAOx3, drowsy. VSS 2L NC O2. B/l wrists wrapped in сергей bandages to elbows. Trace edema to fingers. Unable to perform neurovascular check but pt has sensation of fingers. Pt's and daughter at
bedside and instructed on plan of care. Call cm within reach, bed in lowest position, care remains ongoing.
--- NOTE | 2025-01-16 22:42 | PTCARENOTE ---
Pt with multiple runs of SVT. Pt sleeping and asymptomatic, VSS. AMANDEEP Renteria notified and aware. Labs ordered. Will perform EKG if pt becomes symptomatic. Strips and cardiac report placed in physical chart.
[2025-01-16] MEDS: TYLENOL PO (23:28)
[2025-01-16 23:47] LABS: Hematocrit 37.4 % (37.0-47.0); Hemoglobin 12.7 g/dL (12.0-16.0); Mean Corp Hgb Conc. 34.0 g/dL (33.0-37.0); Mean Corpuscular Volume 86.6 fL (81.0-99.0); Platelet Count 151 10^3/uL (130-400); Red Cell Dist. Width 12.8 % (11.5-14.5)
[2025-01-17] VITALS (8 sets, daily range): BP systolic 124–175; BP diastolic 66–99; PULSE 74; O2SAT 96
[2025-01-17 00:11] LABS: Blood Urea Nitrogen 14 mg/dl (7-17); Calcium 8.4 mg/dl (8.4-10.2); Carbon Dioxide 22 mmol/L (22-30); Chloride 108 mmol/L (98-107); Estimated Creatinine Clearance 55 ml/min; Glucose 133 mg/dl (70-99); Magnesium 2.1 mg/dl (1.6-2.3); Potassium 3.6 mmol/L (3.5-5.1); Sodium 136 mmol/L (135-145); eGFR > 60.00
[2025-01-17] MEDS: ANCEF 5 IV ×3 (01:10→17:40)
[2025-01-17] MEDS: TYLENOL PO ×2 (03:15→23:01)
[2025-01-17 06:51] LABS: Hematocrit 36.0 % (37.0-47.0); Hemoglobin 12.1 g/dL (12.0-16.0); Mean Corp Hgb Conc. 33.6 g/dL (33.0-37.0); Mean Corpuscular Volume 87.0 fL (81.0-99.0); Nucleated Red Blood Cells % 0 %; Platelet Count 164 10^3/uL (130-400); Red Cell Dist. Width 12.8 % (11.5-14.5)
--- NOTE | 2025-01-17 06:56 | W.PN.HOSP.TC ---
Addendum entered and electronically signed by Guillermo Mccoy MD 01/18/25 09:07:
01/17/25
Attending Addendum-
I saw and evaluated the patient. I reviewed the resident�s note and agree with findings and plan as documented in the resident�s note. Sub: pain in b/l wrists improved on movement and gripping. seen with present. Denies fevers chills. Full
12 point ROS reviewed and negative except as documented Exam: Vitals reviewed in chart GEN-NAD heart RRR no MRG lungs clear abd soft LE no edema Ext- b/l wrist soft cast sensation intact fingertips warm delayed cap refil
Plan:
Mechanical fall with bilateral comminuted distal rad fx with dorsal displacement with Ulnar styloid process fracture.
- 01/16- Open reduction, internal fixation, bilateral distal radius fractures
- Oxy, Dilaudid continued
- cervical spine CT with No evidence of acute fracture or dislocation.
- PT/OT consulted
- NWB b/l UE
- restarted eliquis this AM
#Paroxysmal atrial fibrillation
-EKG with NSR
-cont eliquis
-metoprolol continued with hold parameter
#Essential HTN
-valsartan continued with hold parameter
#DVT prophylaxis
-eliquis
#CODE status
-full code
Disp DC home in am with
Time spent coordinating care, review of plan of care with resident, personally reviewed records in EMR, med rec, consults, notes, labs, radiology, d/w nursing and POA� 51 mins
Original Note:
Today's Communication/Plan
-
Monitor clinical status s/p bilateral distal radius ORIF's.
Anticoagulation with apixaban for atrial fibrillation was restarted this morning.
Plan for discharge later today.
Assessment / Plan
Assessment / Plan
#Bilateral distal radius fractures
- Etiology likely multifactorial, due to trauma and osteoporosis
- S/p bilateral distal radius ORIF's performed yesterday
- Per Ortho, strict nonweightbearing; elevation to above level of heart to control swelling/pain; F/U with Ortho in 10 to 14 days; orthopedically stable for discharge today
- Pain control: Tylenol and Dilaudid as needed
- PT/OT postoperative evaluation pending
#Atrial fibrillation
-C/W metoprolol
- Apixaban restarted this morning s/p bilateral distal radius ORIF
#Hypertension
- Patient's BP into the 170s/90s this morning, prior to valsartan administration
- C/W metoprolol, valsartan
- Monitor response to home medications
#Suprapubic discomfort
- Patient states she has been urinating without issue postoperatively
#Osteoporosis
- Holding home denosumab
Disposition:
-PT: Home Health
-OT: Home Health
-CM:Pending
DVT PPx: Apixaban
Anticipated Discharge: Today
Subjective/Interval History
-
Date of Service: January 17, 2025
Patient seen at the bedside on hospital day #3, postoperative day #1. Nursing reports that the patient had brief episodes of asymptomatic SVT overnight while sleeping. No current complaints. Urinating without issue postop.
Objective Data
-
Labs:
Laboratory Results
01/16/25 01/17/25
23:39 05:29
WBC 8.9 6.3
Hgb 12.7 12.1
Hct 37.4 36.0 L
Plt Count 151 164
Sodium 136 Pending
Potassium 3.6 Pending
Chloride 108 H Pending
Carbon Dioxide 22 Pending
BUN 14 Pending
Creatinine 0.7 Pending
Glucose 133 H Pending
Calcium 8.4 Pending
Vital Signs:
Vital Signs
Temp Pulse Resp BP Pulse Ox
97.9 F 69 16 134/66 96
01/17/25 03:02 01/17/25 03:02 01/17/25 03:02 01/17/25 03:02 01/17/25 03:02
I&O
01/15/25 01/16/25 01/17/25
06:59 06:59 06:59
Intake Total 290 / 290
Output Total 700 / 700
Balance -410 / -410
Review of Systems
-
History Source: Patient
Constitutional: Denies Fever, Fatigue or Chills
EENT: Reports No Symptoms Reported
Respiratory: Denies Cough or Trouble Breathing
Cardiac: Denies Chest Pain, Palpitations or Other (Denies lightheadedness)
Abdomen/GI: Denies Abdominal Pain, Nausea, Vomiting or Diarrhea
Genitourinary: Denies Dysuria or Difficulty Voiding
Musculoskeletal: Denies Other (Denies current pain in upper extremities b/l knee)
Neuro: Denies Headache, Weakness or Numbness
Physical Exam
-
General: No Apparent Distress and Comfortable
HEENT: Normocephalic and Atraumatic
Respiratory: Clear to Auscultation and Non Labored Respirations; Negative Wheezes or Crackles
Cardiac: Regular Rhythm and S1/S2; Negative Murmur, Rub or Gallop
GI: Soft, Nontender and Normal Bowel Sounds
Genito-urinary: Negative Other (No suprapubic tenderness morning)
Musculoskeletal: No Cyanosis, No Edema and Other (Bilateral upper extremity splints in place, with patient elevating above her heart)
Skin: Warm and Dry
Neuro: AO x 3
Psych: Calm
--- NOTE | 2025-01-17 07:02 | W.PN.ORTHO ---
Today's Communication / Plan
-
Ice with elevation to above the level of her heart to control swelling/pain
Strict nonweightbearing bilateral upper extremities
Follow-up with orthopedics 10 to 14 days
Orthopedically stable for discharge today
Orthopedics to sign off
Assessment
.
Distal Motor Intact: Yes
Dressing:
Clean, dry and intact.
Plan
.
Surgery / Date: ORIF B/L distal radius 01/16 Ritting
DVT Prophylaxis: Aspirin
Activity:
Out of bed.
PT/OT
Discharge Plan: Home
Subjective
.
.:
Patient resting comfortably.
Vital Signs and Labs
.
Vital Signs and Labs:
Lab Results
01/17/25 05:29
Temp Pulse Resp BP Pulse Ox
97.9 F 69 16 134/66 96
01/17/25 03:02 01/17/25 03:02 01/17/25 03:02 01/17/25 03:02 01/17/25 03:02
Physical Exam
-
Bilateral upper extremity splints in place.
[2025-01-17 07:10] LABS: Blood Urea Nitrogen 13 mg/dl (7-17); Calcium 8.3 mg/dl (8.4-10.2); Carbon Dioxide 24 mmol/L (22-30); Chloride 109 mmol/L (98-107); Estimated Creatinine Clearance 55 ml/min; Glucose 129 mg/dl (70-99); Potassium 4.0 mmol/L (3.5-5.1); Sodium 138 mmol/L (135-145); eGFR > 60.00
[2025-01-17] MEDS: ELIQUIS 5 MG PO ×2 (08:46→19:56)
[2025-01-17] MEDS: SENOKOT 17.2 MG PO ×2 (08:46→19:56)
[2025-01-17] MEDS: TOPROL XL 50 MG PO (08:46)
[2025-01-17] MEDS: DIOVAN 160 MG PO (08:46)
[2025-01-17] MEDS: DITROPAN 2.5 MG PO ×2 (08:46→19:56)
[2025-01-17] MEDS: TYLENOL 650 MG PO ×4 (08:47→19:56)
[2025-01-17] MEDS: COLACE 100 MG PO ×2 (08:47→19:56)
[2025-01-17] MEDS: MIRALAX PO (08:47)
[2025-01-17] MEDS: ROXICODONE 5 MG PO (08:51)
--- NOTE | 2025-01-17 10:52 | CM ---
Addendum entered by Linda Aburto RN 01/17/25 15:34:
IMM reviewed.
Original Note:
Reviewed the chart notes and spoke with the patient at the bedside. PT/OT evaluations pending. CM continues to be available to patient/family and is monitoring medical plan for needs at discharge.
Plan: Discharge plans will depend on the patient's progress.
--- NOTE | 2025-01-17 11:05 | PN.CDI ---
CDI
- -
CDI:
Physician Documentation Request
Admit Date: 01/15/25 16:25
Dear Doctor Raquel,
Clinical Indicators:
Patient admitted with bilateral distal radius fractures.
PMH includes osteoporosis
Home medications: Prolia 60 mg SC [id number]
01/16 H & P, 'patient was doing gardening at [employer], she lost the balance while stepping back and fell backwards and landed on her hand and buttocks.'
Please clarify the etiology the bilateral radial fractures:
Multifactorial, due to trauma and osteoporosis
Traumatic only
Pathologic due to osteoporosis only
Other, please specify
Use of terms such as suspected, likely, concern for, or probable (associated with a specific diagnosis that is being evaluated, monitored, or treated as if it exists) are acceptable and can be coded in the inpatient setting, when documented at the
time of discharge.
Thank you,
BROCK Soria RN
CDI Specialist
available via tiger text
Please use your independent medical judgment in providing your response.
[2025-01-18] MEDS: ANCEF 5 IV ×2 (01:40→10:09)
[2025-01-18] MEDS: MELATONIN 5 MG PO (01:59)
[2025-01-18] MEDS: TYLENOL 650 MG PO ×2 (03:11→10:10)
[2025-01-18 04:28] VITALS: BP 166/76
[2025-01-18 07:05] VITALS: BP 166/83
[2025-01-18 08:12] LABS: Hematocrit 36.1 % (37.0-47.0); Hemoglobin 12.0 g/dL (12.0-16.0); Mean Corp Hgb Conc. 33.2 g/dL (33.0-37.0); Mean Corpuscular Volume 88.0 fL (81.0-99.0); Nucleated Red Blood Cells % 0 %; Platelet Count 162 10^3/uL (130-400); Red Cell Dist. Width 13.2 % (11.5-14.5)
[2025-01-18 08:29] LABS: Blood Urea Nitrogen 16 mg/dl (7-17); Calcium 8.2 mg/dl (8.4-10.2); Carbon Dioxide 29 mmol/L (22-30); Chloride 111 mmol/L (98-107); Estimated Creatinine Clearance 55 ml/min; Glucose 98 mg/dl (70-99); Potassium 3.9 mmol/L (3.5-5.1); Sodium 140 mmol/L (135-145); eGFR > 60.00
--- NOTE | 2025-01-18 09:33 | W.PN.HOSP.TC ---
Addendum entered and electronically signed by Guillermo Mccoy MD 01/18/25 22:40:
Attending Addendum-
I saw and evaluated the patient. I reviewed the resident�s note and agree with findings and plan as documented in the resident�s note. Sub: pain in b/l wrists improved. seen with present. Denies fevers chills. Full 12 point ROS reviewed and
negative except as documented Exam: Vitals reviewed in chart GEN-NAD heart RRR no MRG lungs clear abd soft LE no edema Ext- b/l wrist soft cast sensation intact fingertips warm delayed cap refil
Plan:
Mechanical fall with bilateral comminuted distal rad fx with dorsal displacement with Ulnar styloid process fracture.
- 01/16- Open reduction, internal fixation, bilateral distal radius fractures
- pain control
- cervical spine CT with No evidence of acute fracture or dislocation.
- PT/OT
- NWB b/l UE
- restarted eliquis 01/17
#Paroxysmal atrial fibrillation
-EKG with NSR
-cont eliquis
-metoprolol continued with hold parameter
#Essential HTN
-valsartan continued with hold parameter
#DVT prophylaxis
-eliquis
#CODE status
-full code
Disp DC home with and VN
Time spent coordinating care, DC planning, review of DC plan of care with resident, transition of care, review of records, med rec/scripts sent electronically, consults, notes, d/w consultants, nursing, family, and CM� 32 mins >50% of this time was
devoted to counseling and coordination of care
Original Note:
Today's Communication/Plan
-
Patient stable status post bilateral distal radius ORIF's 01/16.
Plan for discharge to home with home health later today, following PT/OT family education session.
Assessment / Plan
Assessment / Plan
#Bilateral distal radius fractures
- Etiology likely multifactorial, due to trauma and osteoporosis
- S/p bilateral distal radius ORIF's performed yesterday
- Per Ortho, strict nonweightbearing; elevation to above level of heart to control swelling/pain; F/U with Ortho in 10 to 14 days; orthopedically stable for discharge today
- Pain control: Tylenol and Dilaudid as needed
- PT/OT: Meeting with patient and family today for education
#Atrial fibrillation
-C/W metoprolol
- Apixaban restarted 01/17 s/p bilateral distal radius ORIF
#Hypertension
- Patient's BP into the 166/83 this morning, prior to valsartan administration
- C/W metoprolol, valsartan
- Monitor response to home medications
#Suprapubic discomfort
- Patient states she has been urinating without issue postoperatively
#Osteoporosis
- Holding home denosumab
Disposition:
-Plan for discharge to home with home health later today
-PT: Home Health
-OT: Home Health
-CM:Pending
DVT PPx: Apixaban
Anticipated Discharge: Today
Subjective/Interval History
-
Date of Service: January 18, 2025
Patient seen at the bedside Hospital day #4. Patient reports that the patient was walking well since last night. NAEO. Patient refused her midnight acetaminophen as she was not much pain. Patient says she is tired because she did not sleep well.
Otherwise, no current complaints. Amenable to discharge to home with home care today following family education with PT.
Objective Data
-
Labs:
Laboratory Results
01/18/25
07:31
WBC 6.1
Hgb 12.0
Hct 36.1 L
Plt Count 162
Sodium 140
Potassium 3.9
Chloride 111 H
Carbon Dioxide 29
BUN 16
Creatinine 0.7
Glucose 98
Calcium 8.2 L
Vital Signs:
Vital Signs
Temp Pulse Resp BP Pulse Ox
98.4 F 68 18 166/83 98
01/18/25 07:05 01/18/25 07:05 01/18/25 07:05 01/18/25 07:05 01/18/25 07:05
I&O
01/17/25 01/18/25 01/19/25
06:59 06:59 06:59
Intake Total 290 / 290 900 / 900
Output Total 700 / 700
Balance -410 / -410 900 / 900
Review of Systems
-
History Source: Patient
Constitutional: Denies Fever, Fatigue or Chills
EENT: Reports No Symptoms Reported
Respiratory: Denies Cough or Trouble Breathing
Cardiac: Denies Chest Pain, Palpitations or Syncope
Abdomen/GI: Denies Abdominal Pain, Nausea, Vomiting or Diarrhea
Genitourinary: Reports No Symptoms; Denies Difficulty Voiding
Musculoskeletal: Reports Other (Mild pain in upper extremities)
Neuro: Denies Headache, Weakness or Numbness
Physical Exam
-
General: No Apparent Distress and Comfortable
HEENT: Normocephalic and Atraumatic
Respiratory: Clear to Auscultation and Non Labored Respirations; Negative Wheezes or Crackles
Cardiac: Regular Rhythm and S1/S2; Negative Murmur, Rub or Gallop
GI: Soft, Nontender and Normal Bowel Sounds
Musculoskeletal: No Edema and Other (Bilateral upper extremity splints in place; fingertips warm, no motor or sensory deficit); Negative Cyanosis
Skin: Warm and Dry
Neuro: AO x 3
Psych: Calm
[2025-01-18] MEDS: COLACE 100 MG PO (10:10)
[2025-01-18] MEDS: SENOKOT 17.2 MG PO (10:10)
[2025-01-18] MEDS: DITROPAN 2.5 MG PO (10:10)
[2025-01-18] MEDS: DIOVAN 160 MG PO (10:10)
[2025-01-18] MEDS: ELIQUIS 5 MG PO (10:11)
[2025-01-18] MEDS: MIRALAX 17 GRAMS PO (10:11)
[2025-01-18] MEDS: TOPROL XL 50 MG PO (10:11)
--- NOTE | 2025-01-18 10:12 | CM ---
Reviewed the chart notes and spoke with the patient and her spouse at the bedside. Patient to be discharged to home today. CM continues to be available to patient/family and is monitoring medical plan for needs at discharge.
Plan: Discharge to home with [facility] services. Patient's spouse to provide transportation.
[2025-01-18 11:10] VITALS: BP 163/95
[2025-01-18 11:42] VITALS: BP 179/91
[2025-01-18] MEDS: TYLENOL PO (12:00)
--- NOTE | 2025-01-18 19:31 | W.DCSUMMARY ---
Addendum entered and electronically signed by Guillermo Mccoy MD 01/18/25 22:41:
Read, reviewed, and agree. See same day progress note for additional details.
Raul Mccoy MD
Original Note:
Documented by User: Oscar García MD, Resident 01/18/25 19:33
Discharge Summary
Discharge Data
Date of Admission: 01/15/25
Date of Discharge: 01/18/25
-
Pending Results: No
Hospital Course
Discharging Physician: Oscar García MD; Guillermo Mccoy MD
Disposition: Home with home care
Primary care physician: Dr. Celine Marcial
Principal Discharge diagnosis: Bilateral distal radius fractures
Chronic Discharge diagnosis: Atrial fibrillation; hypertension; osteoporosis
Hospital Course: Patient presented to the [facility] emergency department following a mechanical fall while gardening. Patient tripped backwards over a small fence and landed on outstretched bilateral upper extremities. Patient also
reports that she hit her head during the fall, which was followed by an episode of dizziness. Based on imaging and clinical findings, the patient was diagnosed with bilateral distal radius fractures, which were likely multifactorial in etiology due
to trauma and osteoporosis. Surgical intervention was required, and the patient underwent successful bilateral distal radius open reduction internal fixations (ORIFs), tolerating the procedures well. Patient complained of suprapubic discomfort
prior to surgery, however she was urinating without issue. No urinary complaints following the procedure. Overnight on the evening following the procedure, patient experienced brief episodes of supraventricular tachycardia. The patient remained
asymptomatic during his episodes, which resolved without treatment. Patient was evaluated by physical and occupational therapy 1 day subsequent to the procedure, both of whom recommended home care. Patient was deemed medically stable and
discharged 2 days after the procedure.
Patient's chronic conditions were also managed as follows:
#Atrial fibrillation: Patient's anticoagulation with apixaban was held following her mechanical fall in anticipation of surgery. Patient's apixaban was restarted the morning following surgery. Patient's home medication of metoprolol succinate was
continued during hospital stay.
#Hypertension: Patient's home medications of valsartan and metoprolol were continued during hospital stay. Patient did have hypertensive episodes intermittently, which were resolved with administration of her medications.
#Osteoporosis: Patient's home medication with denosumab was held during hospital stay.
Important imaging findings:
Wrist X-Ray Right - IMPRESSION: Comminuted impacted intra-articular fracture of the distal right radius. Ulnar styloid process fracture.
Wrist X-Ray Left - IMPRESSION: Comminuted impacted intra-articular fracture of the distal left radius. Fracture of the ulnar styloid process, most likely acute.
CT head without IV contrast � IMPRESSION: No acute intracranial abnormality.
Procedure findings:
Procedure: Open reduction, internal fixation, bilateral distal radius fractures, extra-articular
Preoperative diagnosis: Bilateral distal radius fractures.
Postoperative diagnosis: Bilateral distal radius fractures.
Implants: [employer] VariAx volar distal radial locking plating system x2.
Discharge Plan
-
Patient Disposition: Home with Home Care
Discharge Diagnosis/Procedures: Bilateral distal radius fractures
Condition: Fair
Diet: As tolerated
Activity: Other activity
Additional Activity: Strict nonweightbearing on bilateral upper extremities
Driving Restrictions: No driving
Bathing Restrictions: Avoid getting splints wet, bag them when showering
Other Services: VN
Activity Restrictions/Additional Instructions:
Strict nonweightbearing on bilateral upper extremities
Ice with elevation to above the level of her heart to control swelling/pain
Can continue with OTC Tylenol as needed for pain
Encouraged digital range of motion
Follow-up with orthopedics (Dr. Jones) in 10 to 14 days for clinical examination, suture removal, and application of Velcro removable orthosis
Referrals:
Celine Marcial MD [Family Provider, Internal Medicine]
Issac Jones MD [Active, Orthopedics]
Referral Note: Schedule Follow up in 10-14days
Prescriptions:
Continued
oxybutynin chloride 5 mg tablet extended release 24hr
5 mg PO HS
Prolia 60 mg/mL Syringe
60 mg SC [id number]
polyethylene glycol 3350 [Miralax] 17 gram Powder In Packet
17 g PO DAILY
estradiol 0.01 % (0.1 mg/gram) Cream
1 appful VAGINAL SUTH
cholecalciferol (vitamin D3) 25 mcg (1,000 unit) Tablet
25 mcg PO DAILY
metoprolol succinate 50 MG tablet extended release 24 hr
50 mg PO DAILY 90 Days Qty: 90 3RF
valsartan 160 mg Tablet
160 mg PO DAILY 90 Days Qty: 90 3RF
Eliquis 5 MG tablet
5 mg PO BID 90 Days Qty: 180 3RF
Discharge Orders:
Discharge Patient (As Directed); Ordered 01/18/25
Ordered By: Nito Worley
Discharge Date and Time
Discharge Date/Time: 01/18/25 13:15
Print Language: TONGAN

Documented by User: Guillermo Mccoy MD 01/18/25 22:38
Discharge Summary
Discharge Data
Date of Admission: 01/15/25
Date of Discharge: 01/18/25
Discharge Plan
-
Patient Disposition: Home with Home Care
Discharge Diagnosis/Procedures: Bilateral distal radius fractures
Condition: Fair
Diet: As tolerated
Activity: Other activity
Additional Activity: Strict nonweightbearing on bilateral upper extremities
Driving Restrictions: No driving
Bathing Restrictions: Avoid getting splints wet, bag them when showering
Other Services: VN
Activity Restrictions/Additional Instructions:
Strict nonweightbearing on bilateral upper extremities
Ice with elevation to above the level of her heart to control swelling/pain
Can continue with OTC Tylenol as needed for pain
Encouraged digital range of motion
Follow-up with orthopedics (Dr. Jones) in 10 to 14 days for clinical examination, suture removal, and application of Velcro removable orthosis
Referrals:
Celine Marcial MD [Family Provider, Internal Medicine]
Issac Jones MD [Active, Orthopedics]
Referral Note: Schedule Follow up in 10-14days
Prescriptions:
Continued
oxybutynin chloride 5 mg tablet extended release 24hr
5 mg PO HS
Prolia 60 mg/mL Syringe
60 mg SC [id number]
polyethylene glycol 3350 [Miralax] 17 gram Powder In Packet
17 g PO DAILY
estradiol 0.01 % (0.1 mg/gram) Cream
1 appful VAGINAL SUTH
cholecalciferol (vitamin D3) 25 mcg (1,000 unit) Tablet
25 mcg PO DAILY
metoprolol succinate 50 MG tablet extended release 24 hr
50 mg PO DAILY 90 Days Qty: 90 3RF
valsartan 160 mg Tablet
160 mg PO DAILY 90 Days Qty: 90 3RF
Eliquis 5 MG tablet
5 mg PO BID 90 Days Qty: 180 3RF
Discharge Orders:
Discharge Patient (As Directed); Ordered 01/18/25
Ordered By: Nito Worley
Discharge Date and Time
Discharge Date/Time: 01/18/25 13:15
Print Language: TONGAN
== END 2025-01-18 13:15 | disposition home health service (06) | DRG 511 ==
LOC: 2 SOUTH 16:25
PROVIDERS: Nurse Practitioner; Nurse Practitioner Family; ADMITTING PHYSICIAN Internal Medicine; ATTENDING PHYSICIAN Family Medicine; CONSULT PHYSICIAN Orthopaedic Surgery Hand Surgery; EMERGENCY PHYSICIAN Emergency Medicine; FAMILY PHYSICIAN Student in an Organized Health Care Education/Training Program
PROC: 0PSJ04Z Reposition Left Radius with Internal Fixation Device, Open Approach (ICD-10-PCS; 2025-01-16)
PROC: 0PSH04Z Reposition Right Radius with Internal Fixation Device, Open Approach (ICD-10-PCS; 2025-01-16)
DX: M80.032A Age-related osteoporosis with current pathological fracture, left forearm, initial encounter for fracture (principal); I47.10 Supraventricular tachycardia, unspecified; Z87.891 Personal history of nicotine dependence; I12.9 Hypertensive chronic kidney disease with stage 1 through stage 4 chronic kidney disease, or unspecified chronic kidney disease; N18.9 Chronic kidney disease, unspecified; M80.031A Age-related osteoporosis with current pathological fracture, right forearm, initial encounter for fracture; Z79.01 Long term (current) use of anticoagulants
CPT/HCPCS: 29125; 70450; 72125; 73110; 80048; 80053; 83735; 85025; 85027; 93005; 96361; 96374; 97116; 97163; 97166; 97530; 97535; 99285; C1713

== ENCOUNTER → 2025-03-25 07:44 | Outpatient (REF) | payer MEDICARE, SELFPAY | LOC: WDC 07:44 | PROVIDERS: ATTENDING PHYSICIAN Obstetrics & Gynecology Gynecology; FAMILY PHYSICIAN Student in an Organized Health Care Education/Training Program | DX: Z01.419 Encounter for gynecological examination (general) (routine) without abnormal findings (principal) | CPT/HCPCS: 77063; 77067 ==

== ENCOUNTER 2025-04-09 15:49 | Outpatient (RCR) | payer MEDICARE, SELFPAY | END 2025-04-09 23:59 | disposition home or self-care (01) | LOC: ROT 15:49 | PROVIDERS: ATTENDING PHYSICIAN Orthopaedic Surgery Hand Surgery; FAMILY PHYSICIAN Student in an Organized Health Care Education/Training Program | DX: Z47.89 Encounter for other orthopedic aftercare (principal); S52.591D Other fractures of lower end of right radius, subsequent encounter for closed fracture with routine healing; S52.592D Other fractures of lower end of left radius, subsequent encounter for closed fracture with routine healing; Z73.6 Limitation of activities due to disability; M62.81 Muscle weakness (generalized); W18.39XD Other fall on same level, subsequent encounter | CPT/HCPCS: 97018; 97110; 97140; 97166; 97535 ==

== ENCOUNTER 2025-05-09 13:00 | Outpatient (RCR) | payer MEDICARE, SELFPAY | END 2025-05-09 23:59 | disposition home or self-care (01) | LOC: ROT 13:00 | PROVIDERS: ATTENDING PHYSICIAN Orthopaedic Surgery Hand Surgery; FAMILY PHYSICIAN Student in an Organized Health Care Education/Training Program | DX: Z47.89 Encounter for other orthopedic aftercare (principal); S52.591D Other fractures of lower end of right radius, subsequent encounter for closed fracture with routine healing; S52.592D Other fractures of lower end of left radius, subsequent encounter for closed fracture with routine healing; Z73.6 Limitation of activities due to disability; M62.81 Muscle weakness (generalized); W18.39XD Other fall on same level, subsequent encounter | CPT/HCPCS: 97010; 97018; 97110; 97140 ==

== ENCOUNTER 2025-05-23 08:45 | Outpatient (RCR) | payer MEDICARE, SELFPAY | END 2025-05-23 23:59 | disposition home or self-care (01) | LOC: ROT 08:45 | PROVIDERS: ATTENDING PHYSICIAN Orthopaedic Surgery Hand Surgery; FAMILY PHYSICIAN Student in an Organized Health Care Education/Training Program | DX: Z47.89 Encounter for other orthopedic aftercare (principal); S52.591D Other fractures of lower end of right radius, subsequent encounter for closed fracture with routine healing; S52.592D Other fractures of lower end of left radius, subsequent encounter for closed fracture with routine healing; Z73.6 Limitation of activities due to disability; M62.81 Muscle weakness (generalized); W18.39XD Other fall on same level, subsequent encounter | CPT/HCPCS: 97010; 97018; 97110; 97140 ==